=== PATIENT | female | born 1930 | race African-American/Black ===

== ENCOUNTER 2017-08-03 11:07 | Emergency (ER) | payer MEDICARE ==
[~2017-08-03] VITALS: Ht 157.5 cm; Wt 45.4 kg
--- NOTE | ~2017-08-03 | CR72 ---
[facility] A Service of [facility] RADIOLOGY TEXT RESULTS PATIENT: EVA ANDERSON LOCATION: [facility] : [birth year] UNIT #: [id number] AGE: [address]: Nash Vázquez MD SEX: F ORDER DR: [id number] [facility] [address] [place], [place] [address] [id number] MR#: [id number] Acc #: [id number] NAME: EVA ANDERSON : 1930 SEX: F STUDY DATE/TIME: 08/03/2017 11:58 UNIT: [facility] ROOM: STUDY DESCRIPTION: CR Chest Single View Portable Attending Physician: Nash Vázquez M.D. Ordering Physician: Nash Vázquez M.D. Primary Care Physician: Isidoro Padilla M.D. MEDICAL IMAGING REPORT This report is preliminary unless electronic signature is present EXAM Chest portable 08/03/2017 1158 hours CLINICAL HISTORY 87-year-old woman sent to the emergency room from the [facility] with syncope and shortness of air today. History of hypertension and dementia. COMPARISON None. FINDINGS Portable upright chest demonstrates mild cardiomegaly and a mildly tortuous atherosclerotic aorta. Hilar contours are normal. Lungs are moderately well expanded. There is minimal patchy density at both lung bases. Atelectasis is favored over pneumonia. No effusion seen. There is a left PICC line with tip projecting over the medial left clavicle likely in the left subclavian vein. IMPRESSION 1. Slightly low lung volumes with mild basilar vascular crowding. No definite pneumonia, edema, or pleural effusion. 2. Left PICC line tip projects over the medial left clavicle likely in the subclavian vein. Dictated by... Dayanna Palomino M.D. THIS IS AN ELECTRONICALLY VERIFIED REPORT Dayanna Palomino M.D. at 08/04/2017 9:29 AM DIONISIO/jaqueline [facility] A Service of [facility] RADIOLOGY TEXT RESULTS PATIENT: EVA ANDERSON LOCATION: [facility] : 30 UNIT #: [id number] AGE: [address]: Nash Vázquez MD SEX: F ORDER DR: TD: 08/03/2017 15:41 JOB #: [id number] MEDICAL IMAGING REPORT Page 1 of 1 COPY
--- NOTE | ~2017-08-03 | EKG ---
PATIENT: EVA ANDERSON UNIT #: [id number] Ventricular Rate: 55 BPM Atrial Rate: 55 BPM P-R Interval: 144 ms QRS Duration: 100 ms Q-T Interval: 442 ms QTC Calculation(Bezet): 422 ms P [place]: 24 degrees Calculated R [place]: -36 degrees Calculated T [place]: -37 degrees Diagnosis Line: Sinus bradycardia Diagnosis Line: Left axis deviation Diagnosis Line: Septal infarct , age undetermined Diagnosis Line: ST and T wave abnormality, consider anterior Diagnosis Line: ischemia Diagnosis Line: Abnormal ECG Diagnosis Line: No previous ECGs available Diagnosis Line: Confirmed by KRISTIAN LOVELL MD ([id number]) on Diagnosis Line: 08/04/2017 10:52:24 AM INTERPRETING MD: LILIYA ALEX
[2017-08-03] MEDS ORDERED: ARICEPT5 MG PO (11:23)
[2017-08-03] MEDS ORDERED: [UNRECOGNIZED DRUG - OTHER] PO (11:23)
[2017-08-03] MEDS ORDERED: ASCORBIC ACID250 M1 PO (11:24)
[2017-08-03] MEDS ORDERED: FERROUS GLUCON324 MG PO (11:24)
[2017-08-03] MEDS ORDERED: CEFEPIME-D2 GM/50 ML IV (11:24)
[2017-08-03] MEDS ORDERED: LOPRESSOR PO (11:25)
[2017-08-03] MEDS ORDERED: METRONIDAZOLE PO (11:25)
[2017-08-03] MEDS ORDERED: NAMENDA5 MG PO (11:25)
[2017-08-03] MEDS ORDERED: SIMVASTATIN10 MG PO (11:26)
[2017-08-03 13:07] LABS: BASOPHIL# 0.1 X10e3 (0-0.3); BASOPHIL% 0.9 % (0-2.5); EOSINOPHIL% 12.5 % (0.0-7.0); HEMATOCRIT 39.8 % (35.0-45.0); HEMOGLOBIN 12.6 gm/dL (12.0-16.0); LYMPHOCYTE# 0.8 X10e3 (1.0-3.5); MEAN CORPUSCULAR HEMOGLOBIN 27.6 PG (28-34); MEAN CORPUSCULAR HGB CONC 31.8 g/dL (30-36); MEAN PLATELET VOLUME 9.4 FL (6.5-11.5); MONOCYTE# 0.8 X10e3 (0-1.0); MONOCYTE% 9.8 % (3.0-12.0); NEUTROPHIL# 5.5 X10e3 (1.5-7.1); NEUTROPHIL% 66.8 % (40-75); PLATELET COUNT 209 X10e3 (140-420); RED BLOOD COUNT 4.57 X10e (3.90-5.30); RED CELL DISTRIBUTION WIDTH 16.2 % (11.0-15.5); WHITE BLOOD COUNT 8.2 X10e3 (4.0-10.5)
[2017-08-03 13:10] LABS: DIFF IND NO
[2017-08-03 13:46] LABS: ALBUMIN SERUM 2.4 g/dL (3.5-5.0); BILIRUBIN, DIRECT 0.1 mg/dL (0.0-0.2); BILIRUBIN,INDIRECT 0.6 mg/dL (0.0-0.9); BILIRUBIN,TOTAL 0.7 mg/dL (0.2-2.0); BUN/CREATININE RATIO 31.11; CALCIUM SERUM 8.7 mg/dL (8.4-10.2); CREATININE SERUM 0.9 mg/dL (0.6-1.4); GLOM FILT RATE Estimated 66.7 mL/min (>60); POTASSIUM 3.5 mmol/L (3.5-5.1); PROTEIN TOTAL SERUM 6.2 g/dL (6.0-8.3)
== END 2017-08-03 17:48 | disposition home or self-care (01) ==
LOC: CED 11:07
PROVIDERS: Emergency Medicine
DX: R55 Syncope and collapse (principal); R11.2 Nausea with vomiting, unspecified; I10 Essential (primary) hypertension; F03.90 Unspecified dementia, unspecified severity, without behavioral disturbance, psychotic disturbance, mood disturbance, and anxiety; E78.5 Hyperlipidemia, unspecified; Z79.899 Other long term (current) drug therapy
CPT/HCPCS: 36415; 71010; 80048; 80076; 82947; 85025; 93005; 96360; 96361; 99285